=== PATIENT | female | born 1965 | race Caucasian/White ===

== ENCOUNTER 2016-05-11 18:02 | Emergency (ER) | payer MEDICARE, OTHER ==
[2016-05-11 18:25] VITALS: BP 148/76
--- NOTE | 2016-05-11 18:57 | ED Physician Documentation ---
General Adult - HISTORIAN Historian: patient - HPI Stated Complaint: Burning with Urination Chief Complaint: General Adult Onset: days ago (4) Timing: still present Severity: moderate Further Comments: yes (Pt is a 51 yo female with dysuria, urgency, frequency x 4 days. Pt has had back pain. No fever. Some nausea. Pt states she gets frequent yeast infections, especially when she takes abx.) - ROS CONST: other (malaise) EYES/ENT: none CVS/RESP: none GI/: abdominal pain, problems urinating, nausea MS/SKIN/LYMPH: none - PAST HX Past History: hypertension, other (UTI's) Other History: diabetes Type 2 Allergies/Adverse Reactions: Allergies Allergy/AdvReac Type Severity Reaction Status Date / Time cefprozil [From Cefzil] Allergy Intermediate Rash Verified 05/11/16 18:25 lisinopril Allergy Intermediate Rash Verified 05/11/16 18:25 Sulfa (Sulfonamide Allergy Intermediate Rash Verified 05/11/16 18:25 Antibiotics) [Sulfa(Sulfonamide Antibiotics)] metformin Allergy GI upset Verified 05/11/16 18:25 Home Medications: Ambulatory Orders Medication Instructions Recorded Topiramate [Topamax] 25 mg PO HS u2 11/28/14 - SOCIAL HX Smoking History: cigarettes - FAMILY HX Family History: No - VITAL SIGNS Vital Signs: Vital Signs Temp Pulse Resp BP Pulse Ox 97.8 F 110 H 18 148/76 98 05/11/16 18:05 05/11/16 18:05 05/11/16 18:05 05/11/16 18:05 05/11/16 18:05 - REVIEWED ASSESSMENTS Nursing Assessment Reviewed: Yes Vitals Reviewed: Yes Progress - Progress Progress: Rx Ciprofloxacin 500 mg po bid x 10 days. Rx Diflucan 150 mg, q 72 h x 5. General Adult Physical Exam - PHYSICAL EXAM GENERAL APPEARANCE: moderate distress EENT: eye inspection normal, pharynx normal NECK: normal inspection, supple RESPIRATORY: no resp distress, chest non-tender, breath sounds normal CVS: reg rate & rhythm, heart sounds normal ABDOMEN: soft, no organomegaly, normal bowel sounds, tenderness (suprapubic) BACK: normal inspection, CVA tenderness (R) SKIN: warm/dry, normal color EXTREMITIES: non-tender, normal range of motion NEURO: oriented X3, motor nml, sensation nml Discharge Clincal Impression: UTI (urinary tract infection) Qualifiers: Urinary tract infection type: site unspecified Hematuria presence: with hematuria Qualified Code(s): N39.0 - Urinary tract infection, site not specified Referrals: Halina Bartlett MD [Primary Care Provider] - Home Medications: Ambulatory Orders Topiramate [Topamax] 25 mg PO HS u2 11/28/14 Condition: Good Disposition: 01 HOME, SELF-CARE Decision to Admit: NO Decision Time: 19:00
[2016-05-11] MEDS ORDERED: CIPROFLOXACIN HCL 500 MG TABLET PO ONE (19:02)
[2016-05-12 06:17] LABS: APPEARANCE,URINE CLOUDY (CLEAR); COLOR,URINE YELLOW (YELLOW); OCCULT BLOOD,URINE TRACE-INTACT (NEGATIVE)
[2016-05-12 06:18] LABS: PH URINE 5.5 (5.0 - 8.0); UROBILINOGEN URINE 0.2 Eu (0.2-1.0)
== END 2016-05-11 19:10 | disposition home or self-care (01) ==
LOC: ED 18:02
DX: N39.0 Urinary tract infection, site not specified (principal)
CPT/HCPCS: 81002; 87088; 99282

== ENCOUNTER 2016-12-03 14:43 | Outpatient (CLI) | payer MEDICARE, OTHER ==
[2016-12-03 15:33] LABS: eGFR (African) > 60; eGFR (Non-African) > 60
== END 2016-12-03 15:00 ==
LOC: LAB 14:43
PROVIDERS: ATTEND Physician Assistant
DX: E11.9 Type 2 diabetes mellitus without complications (principal); E03.9 Hypothyroidism, unspecified
CPT/HCPCS: 36415; 80053; 83036; 84439; 84443; 84481; 87086; 87186

== ENCOUNTER 2017-03-04 12:01 | Outpatient (CLI) | payer MEDICARE, OTHER | END 2017-03-04 12:10 | LOC: LAB 12:01 | PROVIDERS: ATTEND Family Medicine | DX: E11.9 Type 2 diabetes mellitus without complications (principal) | CPT/HCPCS: 36415; 83036 ==

== ENCOUNTER 2017-09-27 19:06 | Emergency (ER) | payer MEDICARE, OTHER ==
--- NOTE | 2017-09-27 19:13 | ED Physician Documentation ---
General Adult - HISTORIAN Historian: patient - HPI Stated Complaint: sinus pain and pressure, cough and fatigue Chief Complaint: Allergies Onset: days ago (6) Timing: still present Severity: moderate Further Comments: yes (sinus pain and pressure for about one week. She states that she has had fever, (not sure of measurement), sinus pain and pressure, cough, fatigue. She has not tried anyting OTC . She states her PCP knows she gets frequent sinus infections. She states she is supposed to take allergy meds and allergy shots daily - she also smokes. She is a diabetic she is "fairly controlled" .) Last known Well Code/Unknown Code: Unknown - ROS CONST: fever EYES/ENT: sore throat, nasal drainage, nasal congestion CVS/RESP: shortness of breath, cough GI/: none MS/SKIN/LYMPH: denies: rash NEURO/PSYCH: headache - PAST HX Past History: hypertension, other (DM, COPD (she thinks) Hyperlipidemia and hypothyroidism ) Surgeries/Procedures: none Immunizations: UTD Allergies/Adverse Reactions: Allergies Allergy/AdvReac Type Severity Reaction Status Date / Time cefprozil [From Cefzil] Allergy Intermediate Rash Verified 09/27/17 19:33 lisinopril Allergy Intermediate Rash Verified 09/27/17 19:33 Sulfa (Sulfonamide Allergy Intermediate Rash Verified 09/27/17 19:33 Antibiotics) [Sulfa(Sulfonamide Antibiotics)] metformin AdvReac GI upset Verified 09/27/17 19:33 Home Medications: Ambulatory Orders Medication Instructions Recorded Dicyclomine HCl 10 mg PO DIRECTED 09/27/17 Esomeprazole Magnesium [Nexium] 40 mg PO D 09/27/17 - SOCIAL HX Smoking History: cigarettes Alcohol Use: none Drug Use: none - FAMILY HX Family History: No - VITAL SIGNS Vital Signs: Vital Signs Temp Pulse Resp BP Pulse Ox 148/76 05/11/16 19:22 - REVIEWED ASSESSMENTS Nursing Assessment Reviewed: Yes Vitals Reviewed: Yes General Adult Physical Exam - PHYSICAL EXAM GENERAL APPEARANCE: no distress EENT: eye inspection normal, ENT inspection normal, pharynx normal, TM erythema , other (sinus pain frontal bilaterally ) RESPIRATORY: no resp distress, chest non-tender, wheezes CVS: reg rate & rhythm, heart sounds normal, equal pulses, no murmur ABDOMEN: soft, normal bowel sounds SKIN: warm/dry, normal color EXTREMITIES: non-tender, normal range of motion, no evidence of injury, no edema NEURO: oriented X3, CN's nml as tested, motor nml, sensation nml, mood/affect nml, cognition normal Discharge Clincal Impression: Sinusitis Qualifiers: Sinusitis location: frontal Chronicity: chronic Qualified Code(s): J32.1 - Chronic frontal sinusitis Referrals: Ben Hale MD [Primary Care Provider] - 2 Days Additional Instructions: 1. Augmentin 875/125 mg take 1 by mouth BID x 10 days 2. Medrol dose pack 3. Zyrtec 10 mg take 1 by mouth daily 4. Follow up with PCP to get back on meds to aide in symptom relief 5. STOP SMOKING 6 . Return to ER for further concerns she is requesting a diflucan 150 - to take after meds Condition: Stable Disposition: 01 HOME, SELF-CARE Decision to Admit: NO Date of Decison to Admit: 09/27/17 Decision Time: 19:32
[2017-09-27 19:32] VITALS: BP 152/75
[2017-09-27] MEDS ORDERED: AMOXICILLIN/POT 875/125 1 EACH PO ONE (19:39)
[2017-09-27] MEDS ORDERED: predniSONE 10 MG TABLET PO ONE (19:39)
== END 2017-09-27 19:53 | disposition home or self-care (01) ==
LOC: ED 19:06
DX: J32.1 Chronic frontal sinusitis (principal)
CPT/HCPCS: 99283; J7512

== ENCOUNTER 2017-12-11 12:00 | Outpatient (CLI) | payer MEDICARE, MEDICAID | END 2017-12-11 14:24 | LOC: LAB 12:00 | PROVIDERS: ATTEND Family Medicine | DX: E11.9 Type 2 diabetes mellitus without complications (principal); Z20.2 Contact with and (suspected) exposure to infections with a predominantly sexual mode of transmission | CPT/HCPCS: 36415; 83036; 87491; 87591 ==

== ENCOUNTER 2018-12-27 19:38 | Emergency (ER) | payer MEDICARE, MEDICAID ==
[2018-12-27] MEDS ORDERED: KETOROLAC TROMETHAMINE 60 MG/2 ML VIAL IM ONE (20:05)
[2018-12-27] MEDS ORDERED: ORPHENADRINE CITRATE 60 MG/2 ML ML IM ONE (20:06)
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
[2018-12-27 21:12] VITALS: BP 163/91
--- NOTE | 2018-12-30 10:05 | Diagnostic Imaging Report ---
SHERITA RUDOLPH (RECRUITMENT ASSISTANT) - ER [facility] [id number] [address] Report Submission Date: Dec 27, 2018 8:22:54 PM CDT Patient Study Name: JOSSUE MACHUCA Date: Dec 27, 2018 8:07:04 PM CDT Modality Type: DX Gender: F Description: SHOULDER 2 VIEWS OR MORE : 61 Institution: [facility] Physician: SHERITA RUDOLPH (MARY) - ER Right shoulder three views History: Pain after injury Findings: Acromioclavicular osteoarthritis is observed. The right shoulder is otherwise intact without fracture or dislocation. Electronically signed on Dec 27, 2018 8:22:54 PM CDT by: Yousif BOWIE
== END 2018-12-27 21:00 | disposition home or self-care (01) ==
LOC: ED 19:38
DX: S49.91XA Unspecified injury of right shoulder and upper arm, initial encounter (principal); V93.35XA Fall on board canoe or kayak, initial encounter; Y93.16 Activity, rowing, canoeing, kayaking, rafting and tubing
CPT/HCPCS: 73030; 96372; 99283; J1885; J2360